=== PATIENT | female | born 2000 | race American Indian/Alaskan Native ===

== ENCOUNTER 2020-12-12 11:49 | Emergency (ER) | payer OTHER ==
--- NOTE | 2020-12-12 12:20 | Emergency Department Report ---
ED General Adult HPI - General Chief complaint: Urogenital-Female Stated complaint: 22WKS /POSSIBLE CYST VAG Time Seen by Provider: 12/12/20 11:58 Source: patient Mode of arrival: Ambulatory Limitations: No Limitations - History of Present Illness Initial comments: 20-year-old female patient (22 weeks gestation) presents to the emergency department with complaints of painful swelling to her vaginal area starting 1 week ago. No preceding trauma. Patient states the pain worsened yesterday after she was waxed. No current steroid or antibiotic use. No history of similar symptoms. 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 Her next follow-up appointment is scheduled for next week. Denies fever, chills, abdominal pain, pelvic pain, vaginal bleeding, vaginal discharge, urinary symptoms, purulent drainage. Denies all other complaints at this time. - Related Data Previous Rx's Medication Instructions Recorded Last Taken Type Amoxicillin/Potassium Clav 1 each PO BID 5 Days mg 12/12/20 Unknown Rx [Augmentin 875-125 Tablet] Clindamycin [Clindamycin CAP] 450 mg PO TID 5 Days capsule 12/12/20 Unknown Rx Allergies Allergy/AdvReac Type Severity Reaction Status Date / Time No Known Allergies Allergy Unverified 12/12/20 11:55 ED Review of Systems ROS: Stated complaint: 22WKS /POSSIBLE CYST VAG Other details as noted in HPI Other: GENERAL: Negative for fever, chills, weight change, anorexia, fatigue. ENT: Negative for ear pain, difficulty hearing, sore throat, nasal congestion, epistaxis. CARDIOVASCULAR: Negative for chest pain, palpitations, lower extremity swelling. PULMONARY: Negative for cough, dyspnea, wheezing, orthopnea, cyanosis. GASTROINTESTINAL: Negative for abdominal pain, nausea, vomiting, diarrhea, constipation. GENITOURINARY: Positive for vaginal pain. MUSCULOSKELETAL: Negative for joint pain, joint swelling, myalgias, back pain, neck pain. NEUROLOGICAL: Negative for headache, seizure, syncope, paresthesias, weakness. INTEGUMENTARY: Negative for erythema, rash, diaphoresis, laceration, ecchymosis. HEMATOLOGICAL: Negative for hemoptysis, hematemesis, hematochezia, hematuria. PSYCHIATRIC: Negative for hallucinations, suicidal ideation, homicidal ideation, anxiety, depression. ED Past Medical Hx - Past Medical History Previous Medical History?: No - Surgical History Past Surgical History?: No - Medications Home Medications: Home Medications Medication Instructions Recorded Confirmed Last Taken Type Amoxicillin/Potassium Clav 1 each PO BID 5 Days mg 12/12/20 Unknown Rx [Augmentin 875-125 Tablet] Clindamycin [Clindamycin CAP] 450 mg PO TID 5 Days capsule 12/12/20 Unknown Rx ED Physical Exam - General Limitations: No Limitations - Other Other exam information: General: Awake, appropriately interactive, no acute distress. Neck: Supple. Full range of motion intact. Cardiovascular: Normal peripheral perfusion. Pulmonary: No respiratory distress. Patient is speaking normally without use of accessory muscles. Genitourinary: Female nurse's companion (Veronica Mario) present. There is an area of tenderness and swelling noted to the left vulvar area, approximately 1.5 cm, with overlying erythema and minimal fluctuance, no purulent drainage. No abdominal tenderness. No vaginal bleeding or discharge visualized. Neurological: No facial asymmetry. Speech is clear. Follows commands. Patient is alert and oriented. Musculoskeletal: Moves all four extremities spontaneously with normal range of motion. Psych: Cooperative. Appropriate mood and affect. ED Course Vital Signs 12/12/20 12:00 Temperature 98.3 F Pulse Rate 99 H Respiratory 20 Rate Blood Pressure 128/77 O2 Sat by Pulse 100 Oximetry ED Medical Decision Making - Medical Decision Making Differential diagnosis including but not limited to: abscess, cellulitis, B artholin cyst, [place] duct cyst Patient presents to the emergency department w/ complaints of painful localized vaginal swelling for one week. Physical examination is consistent with small vulvar abscess. Patient is afebrile, hemodynamically stable, without evidence of systemic infection. Patient is not currently on antibiotics. She will be started on Clindamycin plus Augmentin ( category B) per current UpToDate guidelines. Shared decision making was implemented regarding incision & drainage; patient has expressed a preference for conservative management with oral antibiotics + warm compresses + close outpatient follow-up and understands that incision & drainage may be required if conservative management fails to resolve her symptoms and/or if the abscess measures >2 cm after 24 hours of antibiotic therapy. Patient agrees to call her [employer] tomorrow and arrange for follow-up this week. Patient adamantly denies fever, abdominal pain, vaginal bleeding, urinary discomfort, vaginal discharge, and states she does not have any specific concerns regarding STD exposure; she has recently undergone testing by her OB and is awaiting confirmatory results, which she expects to receive at her next appointment. Patient expressed understanding and is agreeable to plan of care. Strict return precautions provided. History, exam, diagnostic testing, and current condition do not suggest worrisome pathology to warrant further testing, continued ED treatment, admission, or surgical evaluation at this point. Given the low probability of a significant medical illness, it would be more likely to result in harm than benefit to perform further testing at this stage. Discussed findings, presumptive diagnosis, need for follow-up and specific signs/symptoms that should prompt immediate return to the emergency department. Instructions were explained in detail to the patient in addition to giving written discharge information. Patient expressed understanding and was given the opportunity to ask questions, all of which were satisfactorily answered prior to discharge home. Critical care attestation.: If time is entered above; I have spent that time in minutes in the direct care of this critically ill patient, excluding procedure time. ED Disposition Clinical Impression: Vulvar abscess Disposition: TO HOME OR SELFCARE Is pt being admited?: No Does the pt Need Aspirin: No Condition: Stable Instructions: Skin Abscess Additional Instructions: Take Tylenol every 4 hours as needed for pain. Take clindamycin and Augmentin with food as directed. Increase your dietary intake of probiotic rich foods while taking these medications. Apply warm compresses to the affected area at least 3 times per day in order to promote blood flow. The area may spontaneously drain on its own. Do not forcefully attempt to express drainage from the area. Follow-up with your hand loom weaver this week. Call tomorrow to schedule an appointment. Return to the emergency department immediately for new or worsening symptoms. Specifically, return to the emergency department immediately for fever, increased pain, worsening swelling, abdominal pain, vaginal bleeding, vaginal discharge, or any other concerns. Prescriptions: Amoxicillin/Potassium Clav [Augmentin 875-125 Tablet] 1 each PO BID 5 Days mg Clindamycin [Clindamycin CAP] 450 mg PO TID 5 Days capsule Referrals: CHEY GALLEGO MD [Staff Physician] - 3-5 Days Time of Disposition: 12:22
== END 2020-12-12 12:48 | disposition home or self-care (01) ==
LOC: ED 11:49
CPT/HCPCS: 99282

== ENCOUNTER 2021-01-09 13:12 | Emergency (ER) | payer OTHER ==
[2021-01-09 13:35] VITALS: BP 107/64
== END 2021-01-09 14:40 | disposition home or self-care (01) ==
LOC: ED 13:12
DX: N76.4 Abscess of vulva (principal); Z79.2 Long term (current) use of antibiotics
CPT/HCPCS: 99282

== ENCOUNTER 2021-02-07 10:18 | Emergency (ER) | payer OTHER ==
[2021-02-07 11:01] VITALS: BP 114/72
--- NOTE | 2021-02-07 12:11 | Emergency Department Report ---
ED Female HPI - General Chief complaint: Urogenital-Female Stated complaint: CYST ON VAGINA LIP Time Seen by Provider: 02/07/21 12:05 Source: patient Mode of arrival: Ambulatory Limitations: No Limitations - History of Present Illness Initial comments: 20-year-old -[place] female who is 30 weeks presents to the emergency room complaining of a cyst on her right labia times a few days. Patient states that she has been suffering from this in the last 2 months. Patient states he has had third time with a cyst on her labia. Patient reports she was on Augmentin and clindamycin. She does admit that she has an appointment on Sunday with her [facility]. Patient denies any vaginal discharge or vaginal bleeding. Patient is 1 para 0. Last menstrual period 07/06/2020 she denies any fever chills no nausea no vomiting no abdominal pain pelvic pain. Onset/Timin -: week(s) Location: labia Severity scale (0 -10): 4 Consistency: intermittent Improves with: none Worsens with: none Are you Now?: Yes Last Menstrual Period: 07/25/20 EDC: 05/01/21 Associated Symptoms: denies: vaginal discharge, vaginal bleeding, abdominal pain, nausea/vomiting, fever/chills, headaches, loss of appetite, dysuria, hematuria, shortness of breath - Related Data Sexually active: Yes : 1 Previous Rx's Medication Instructions Recorded Last Taken Type Amoxicillin/Potassium Clav 1 each PO BID 10 Days tablet 01/09/21 Unknown Rx [Augmentin 875-125 Tablet] Amoxicillin/Potassium Clav 1 each PO BID 5 Days #10 mg 02/07/21 Unknown Rx [Augmentin 875-125 Tablet] Clindamycin [Clindamycin CAP] 450 mg PO TID 5 Days #60 capsule 02/07/21 Unknown Rx Clindamycin [Clindamycin CAP] 450 mg PO TID 5 Days #60 capsule 02/07/21 Unknown Rx Allergies Allergy/AdvReac Type Severity Reaction Status Date / Time No Known Allergies Allergy Unverified 12/12/20 11:55 ED Review of Systems ROS: Stated complaint: CYST ON VAGINA LIP Other details as noted in HPI Comment: All other systems reviewed and negative ED Past Medical Hx - Past Medical History Previous Medical History?: No - Surgical History Past Surgical History?: No - Social History Smoking Status: Never Smoker Substance Use Type: None - Medications Home Medications: Home Medications Medication Instructions Recorded Confirmed Last Taken Type Amoxicillin/Potassium Clav 1 each PO BID 10 Days tablet 01/09/21 Unknown Rx [Augmentin 875-125 Tablet] Amoxicillin/Potassium Clav 1 each PO BID 5 Days #10 mg 02/07/21 Unknown Rx [Augmentin 875-125 Tablet] Clindamycin [Clindamycin CAP] 450 mg PO TID 5 Days #60 capsule 02/07/21 Unknown Rx Clindamycin [Clindamycin CAP] 450 mg PO TID 5 Days #60 capsule 02/07/21 Unknown Rx ED Physical Exam - General Limitations: No Limitations General appearance: alert, in no apparent distress - Head Head exam: Present: atraumatic, normocephalic - Eye Eye exam: Present: normal appearance - ENT ENT exam: Present: normal external ear exam - Neck Neck exam: Present: normal inspection, full ROM - Respiratory Respiratory exam: Present: normal lung sounds bilaterally. Absent: respiratory distress - Cardiovascular Cardiovascular Exam: Present: regular rate - GI/Abdominal GI/Abdominal exam: Present: soft. Absent: tenderness, guarding - Rectal Rectal exam: Present: deferred - External exam: Present: erythema, swelling (Right labia). Absent: bleeding - Extremities Exam Extremities exam: Present: normal inspection, full ROM - Back Exam Back exam: Present: normal inspection - Neurological Exam Neurological exam: Present: alert, oriented X3, normal gait - Psychiatric Psychiatric exam: Present: normal affect, normal mood - Skin Skin exam: Present: warm, dry, intact, normal color. Absent: rash ED Course Vital Signs 02/07/21 11:00 Temperature 98.1 F Pulse Rate 100 H Respiratory 20 Rate Blood Pressure 114/72 O2 Sat by Pulse 100 Oximetry ED Medical Decision Making - Medical Decision Making 20-year-old -[place] female who is 30 weeks presents to the emergency room complaining of a cyst on her right labia times a few days. Patient states that she has been suffering from this in the last 2 months. Patient states he has had third time with a cyst on her labia. Patient reports she was on Augmentin and clindamycin. She does admit that she has an appointment on Sunday with her [facility]. Patient denies any vaginal discharge or vaginal bleeding. Patient is 1 para 0. Last menstrual period 07/06/2020 she denies any fever chills no nausea no vomiting no abdominal pain pelvic pain. Discussed this patient that the cyst is a Bartholin cyst. Discussed that I will place her back on antibiotics and she is to keep her appointment with her [facility] on Sunday. Patient can take Tylenol for pain management. Patient verbalized understanding. Critical care attestation.: If time is entered above; I have spent that time in minutes in the direct care of this critically ill patient, excluding procedure time. ED Disposition Clinical Impression: Bartholin gland cyst Disposition: TO HOME OR SELFCARE Is pt being admited?: No Does the pt Need Aspirin: No Condition: Stable Instructions: Bartholin's Cyst, [id number]-Pafm Additional Instructions: Complete antibiotics as prescribed. Continue with your warm soaks. Tylenol for pain management. Very important for you to follow-up with your [facility] this week. Prescriptions: Amoxicillin/Potassium Clav [Augmentin 875-125 Tablet] 1 each PO BID 5 Days #10 mg Clindamycin [Clindamycin CAP] 450 mg PO TID 5 Days #60 capsule Referrals: Your, [facility] [Other] - 3-5 Days Forms: Work/School Release Form(ED)
== END 2021-02-07 12:50 | disposition home or self-care (01) ==
LOC: ED 10:18
DX: O23.593 Infection of other part of genital tract in pregnancy, third trimester (principal); Z79.899 Other long term (current) drug therapy; Z3A.30 30 weeks gestation of pregnancy
CPT/HCPCS: 99281